=== PATIENT | male | born 1955 | race Caucasian/White ===

== ENCOUNTER 2019-12-04 00:13 | Inpatient (IN) | payer OTHER ==
[2019-12-04] MEDS ORDERED: Morphine 4 MG/ML VIAL ONE (01:12)
[2019-12-04 01:26] LABS: #Monocytes 0.9 thou/uL (0.11-0.59); #Neutrophils 11.1 thou/uL (1.40-6.50); %Basophils 0.1 % (0.0-1.0); %Eosinophils 0.3 % (0.0-10.0); %Lymphocytes 14.4 % (21.0-51.0); %Monocytes 6.4 % (0.0-10.0); %Neutrophils 78.8 % (42.0-75.0); Hemoglobin 12.4 g/dL (14.0-18.0); Mean Corpuscular HGB CONC 34.7 g/dL (32.0-36.0); Mean Corpuscular Hemoglobin 32.7 pg (27.0-31.0); Mean Corpuscular Volume 94.4 fL (78.0-98.0); Mean Platelet Volume 6.7 fL (7.4-10.4); Platelet Count 218 thou/uL (130-400); RBC Distribution Width 12.7 % (11.5-14.5); White Blood Cell (WBC) Count 14.1 thou/uL (4.8-10.8)
[2019-12-04 01:42] LABS: Phosphorus 2.8 mg/dL (2.3-4.7)
[2019-12-04 01:45] LABS: Anion Gap 16 mmol/L (10-20); BUN (Urea Nitrogen) 26 mg/dL (8.4-25.7); Calc. Creatinine Clearance 0 mL/min (70-130); Calcium 8.9 mg/dL (7.8-10.44); Carbon Dioxide 18 mmol/L (23-31); Chloride 102 mmol/L (98-107); Estimated GFR-MDRD 45; Glucose 180 mg/dL (80-115); Magnesium 1.6 mg/dL (1.6-2.6); Potassium 5.4 mmol/L (3.5-5.1); Sodium 131 mmol/L (136-145)
[2019-12-04 04:03] VITALS: BMI 35.6
[2019-12-04] MEDS ORDERED: Ondansetron ODT 4 MG TAB SL PRN (05:15)
[2019-12-04] MEDS ORDERED: Acetaminophen 325 MG TAB PO PRN ×2 (05:15→06:46)
[2019-12-04] MEDS ORDERED: Ondansetron PF 4 MG/2 ML Vial IVP PRN ×2 (05:15→06:46)
[2019-12-04] MEDS ORDERED: HYDROcodone/Acetaminophen 5/325 mg Tablet PO PRN (06:46)
[2019-12-04] MEDS ORDERED: Labetalol HCl 100 MG/20 ML VIAL SLOW IVP PRN (06:46)
[2019-12-04] MEDS ORDERED: cloNIDine 0.1 MG TAB PO PRN (06:46)
[2019-12-04] MEDS ORDERED: Promethazine HCl 12.5 MG in Sodium Chloride 0.9% 50 ML IVPB PRN (06:46)
[2019-12-04] MEDS ORDERED: hydrALAZINE 20 MG/ML VIAL SLOW IVP PRN (06:46)
--- NOTE | 2019-12-04 06:56 | PDOC.HHP ---
Hospitalist HPI - History of Present Illness Stomach pain, hyperkalemia History of Present Illness: Patient is a 64 year old male with PMH CAD/stent, HTN, HLD who presents to ED for sudden onset nausea, vomiting and abdominal pain beginning suddenly today. Patient has been driving from [place] to [place] and was at a gas station and developed sudden onset epigastric pain, nausea, vomiting, reports was eating junk food but no undercooked or left out food. he has two stents placed 2017. patient denies diarrhea, blood or melena in stool or vomit, denies history of DM, took pepto bismol before coming with no relief. He went to [facility] and there was found to have hyperkalemia and ARSENIO, WBC 14, Na 131, K was 5.8, patient recieved insulin/d50, notably he is on arti inhibitor and spironolactone for cardiac history, Cr was 1.75, both K and Cr improved on recheck here. glucose elevated 180s. CT a/p at [facility] revealed cholelithiasis, no evidence of acute cholecystitis. severe SMA stenosis, recieved abx, pain medications, zofran, patient transferred here for further care. Hospitalist ROS - Review of Systems Constitutional: denies: fever, chills, sweats, weakness, malaise, other Eyes: denies: pain, vision change, conjunctivae inflammation, eyelid inflammation, redness, other ENT: denies: ear pain, ear discharge, nose pain, nose discharge, nose congestion, mouth pain, mouth swelling, throat pain, throat swelling, other Respiratory: denies: cough, dry, shortness of breath, hemoptysis, SOB with excertion, pleuritic pain, sputum, wheezing, other Cardiovascular: denies: chest pain, palpitations, orthopnea, paroxysmal noc. dyspnea, edema, light headedness, other Gastrointestinal: reports: nausea, vomiting, abdominal pain. denies: diarrhea, constipation, melena, hematochezia, other Genitourinary: denies: dysuria, frequency, incontinence, hematuria, retention, other Musculoskeletal: denies: neck pain, shoulder pain, arm pain, back pain, hand pain, leg pain, foot pain, other Skin: denies: rash, lesions, theresa, bruising, other Neurological: denies: weakness, numbness, incoordination, change in speech, confusion, seizures, other All other systems reviewed; all pertinent +/- noted in HPI/Subj - Medication Medications: reviewed, see admission documents Hospitalist History - Past Medical History Other Medical History: CAD/stent, HTN, HLD, MO - Past Surgical History Other Surgical History: cardiac stent knee/ankle surgery tonsillectomy - Family History Family History: reports: no pertinent history - Social History Smoking Status: Never smoker Alcohol: reports: Rare Drugs: reports: none - Exam General Appearance: NAD, awake alert Eye: PERRL, anicteric sclera ENT: normocephalic atraumatic, no oropharyngeal lesions, moist mucosa Neck: supple, symmetric, no JVD, no thyromegaly, no lymphadenopathy, no carotid bruit Heart: RRR, no murmur, no gallops, no rubs, normal peripheral pulses Respiratory: CTAB, no wheezes, no rales, no ronchi, normal chest expansion, no tachypnea, normal percussion Gastrointestinal: soft, non-distended, normal bowel sounds, no palpable masses, no hepatomegaly, no splenomegaly, no bruit Gastrointestinal - other findings: mild epigastric tenderness, no guarding or rebound Extremities: no cyanosis, no clubbing, no edema Skin: normal turgor, no lesions, no rashes Neurological: cranial nerve grossly intact, normal sensation to touch, no weakness, no focal deficits, no new deficit Musculoskeletal: normal tone, normal strength, no muscle wasting Psychiatric: normal affect, normal behavior, A&O x 3 Hospitalist Results - Labs Result Diagrams: 12/04/19 01:21 12/04/19 01:21 Lab results: WBC 14.1 thou/uL (4.8-10.8) H 12/04/19 01:21 Hgb 12.4 g/dL (14.0-18.0) L 12/04/19 01:21 Hct 35.8 % (42.0-52.0) L 12/04/19 01:21 MCV 94.4 fL (78.0-98.0) 12/04/19 01:21 Plt Count 218 thou/uL (130-400) 12/04/19 01:21 Neutrophils % 78.8 % (42.0-75.0) H 12/04/19 01:21 Sodium 131 mmol/L (136-145) L 12/04/19 01:21 Potassium 5.4 mmol/L (3.5-5.1) H 12/04/19 01:21 Chloride 102 mmol/L (98-107) 12/04/19 01:21 Carbon Dioxide 18 mmol/L (23-31) L 12/04/19 01:21 BUN 26 mg/dL (8.4-25.7) H 12/04/19 01:21 Creatinine 1.57 mg/dL (0.7-1.3) H 12/04/19 01:21 Glucose 180 mg/dL (80-115) H 12/04/19 01:21 Lactic Acid 1.9 mmol/L (0.5-2.2) 12/04/19 01:21 Calcium 8.9 mg/dL (7.8-10.44) 12/04/19 01:21 VITAL SIGNS Wed Dec 04, 2019 02:45 JUNIE Dias, Zo BP: 167/85 MAP: 112 Pulse: 59 Resp: 16 Temp: 98.6 (Oral) Pain: 2 O2 sat: 98 on (Room Air) Time: 12/04/2019 02:45. labs, imaging reports, ed documents reviewed Hospitalist H&P A/P - Plan Plan: Patient is a 64 year old male with PMH CAD/stent, HTN, HLD who presents to ED for sudden onset nausea, vomiting and abdominal pain beginning suddenly today. # abdominal pain # ARSENIO # hyperkalemia # history of CAD/MO/stent # possible SMA stenosis Patient has been driving from [place] to [place] and was at a gas station and developed sudden onset epigastric pain, nausea, vomiting, reports was eating junk food but no undercooked or left out food. he has two stents placed 2017. patient denies diarrhea, blood or melena in stool or vomit, denies history of DM, took pepto bismol before coming with no relief. He went to [facility] ED and there was found to have hyperkalemia and ARSENIO, WBC 14, Na 131, K was 5.8, patient recieved insulin/d50, notably he is on arti inhibitor and spironolactone for cardiac history, Cr was 1.75, both K and Cr improved on recheck here. glu cose elevated 180s. CT a/p at [facility] revealed cholelithiasis, no evidence of acute cholecystitis. severe SMA stenosis, recieved abx, pain medications, zofran, patient transferred here for further care. - admit to obs - hold arti inhibitor, spironolactone, resume other meds - trend BMP - monitor off of abx - likely gastroenteritis causing pain less likely due to SMA stenosis given timing and symptoms abover, monitor and hopefully symptoms self limit - IVF, monitor for overload will order 1 bag # DVT/GI ppx
[2019-12-04] MEDS ORDERED: Electrolyte Replacement Protoc 1 EACH EACH FS SCH (07:00)
[2019-12-04] MEDS ORDERED: Electrolyte Replacement Protocol FS PRN (07:15)
[2019-12-04] MEDS ORDERED: Sodium Chloride 0.9% 1,000 ML IV SCH (07:15)
[2019-12-04] MEDS: Furosemide 20 MG TAB PO SCH (09:43)
[2019-12-04] MEDS: Heparin 5,000 UNITS/ML VIAL SC SCH ×2 (09:43→20:58)
[2019-12-04] MEDS: Famotidine 20 MG TAB PO SCH (09:43)
[2019-12-04] MEDS ORDERED: Magnesium 2 GM/50 ML 2 GM in Premix Bag 1 BAG IVPB SCH (11:00)
[2019-12-04 11:01] LABS: Anion Gap 15 mmol/L (10-20); BUN (Urea Nitrogen) 22 mg/dL (8.4-25.7); Calc. Creatinine Clearance 94 mL/min (70-130); Calcium 8.5 mg/dL (7.8-10.44); Carbon Dioxide 20 mmol/L (23-31); Chloride 102 mmol/L (98-107); Estimated GFR-MDRD 55; Glucose 178 mg/dL (80-115); Potassium 4.7 mmol/L (3.5-5.1); Sodium 132 mmol/L (136-145)
[2019-12-04 12:03] LABS: SARS-CoV-2 MS2 Positive; SARS-CoV-2 N Gene Negative; SARS-CoV-2 S Gene Negative; SARS-CoV-2 by NAA Not Detected (NotDetected); SARS-CoV-2 orf1ab Negative
[2019-12-04] MEDS: Clopidogrel Bisulfate 75 MG TAB PO SCH (20:58)
[2019-12-04] MEDS ORDERED: Atorvastatin Calcium 40 MG TAB PO SCH (21:00)
[2019-12-04] MEDS ORDERED: Carvedilol 25 MG TAB PO SCH (21:00)
[2019-12-05 05:08] LABS: #Eosinphils 0.2 thou/uL (0.0-0.7); #Lymphocytes 2.1 thou/uL (1.20-3.40); #Monocytes 0.6 thou/uL (0.11-0.59); #Neutrophils 3.9 thou/uL (1.40-6.50); %Basophils 0.2 % (0.0-1.0); %Eosinophils 2.5 % (0.0-10.0); %Lymphocytes 30.6 % (21.0-51.0); %Monocytes 9.1 % (0.0-10.0); %Neutrophils 57.6 % (42.0-75.0); Hemoglobin 11.1 g/dL (14.0-18.0); Mean Corpuscular HGB CONC 33.5 g/dL (32.0-36.0); Mean Corpuscular Hemoglobin 31.7 pg (27.0-31.0); Mean Corpuscular Volume 94.6 fL (78.0-98.0); Mean Platelet Volume 7.2 fL (7.4-10.4); Platelet Count 190 thou/uL (130-400); RBC Distribution Width 12.8 % (11.5-14.5); Red Blood Cell (RBC) Count 3.49 mill/uL (4.70-6.10); White Blood Cell (WBC) Count 6.7 thou/uL (4.8-10.8)
[2019-12-05 05:30] LABS: Anion Gap 15 mmol/L (10-20); BUN (Urea Nitrogen) 14 mg/dL (8.4-25.7); Calc. Creatinine Clearance 102 mL/min (70-130); Calcium 7.9 mg/dL (7.8-10.44); Carbon Dioxide 18 mmol/L (23-31); Chloride 106 mmol/L (98-107); Estimated GFR-MDRD 60; Glucose 132 mg/dL (80-115); Magnesium 1.9 mg/dL (1.6-2.6); Potassium 4.7 mmol/L (3.5-5.1); Sodium 134 mmol/L (136-145)
[2019-12-05 05:33] LABS: Troponin I 0.074 ng/mL (< 0.028)
[2019-12-05] MEDS ORDERED: Magnesium 2 GM/50 ML 2 GM in Premix Bag 1 BAG IVPB SCH (06:45)
[2019-12-05] MEDS: Heparin 5,000 UNITS/ML VIAL SC SCH (08:32)
[2019-12-05] MEDS: Furosemide 20 MG TAB PO SCH (08:33)
[2019-12-05] MEDS: Famotidine 20 MG TAB PO SCH (08:33)
[2019-12-05 12:36] VITALS: BP 142/71; TEMP 97.6
--- NOTE | 2019-12-06 07:57 | DIS ---
DATE OF ADMISSION: 12/04/2019 DATE OF DISCHARGE: 12/05/2019 DISCHARGE DIAGNOSES: 1. Abdominal pain. 2. Acute kidney injury. 3. Hyperkalemia. 4. Dehydration. 5. History of coronary artery disease. 6. Superior mesenteric artery stenosis. DISCHARGE MEDICATIONS: Those are unchanged from the patient's home medicines. HISTORY OF PRESENT ILLNESS AND HOSPITAL COURSE: The patient is a 64-year-old male with past medical history of coronary artery disease, hypertension, and hyperlipidemia, who presented to the ER with acute onset of nausea, vomiting, and abdominal pain that started suddenly on the day prior to presentation. The patient reported eating junk food on the day before. His presentation was concerning for gastroenteritis with dehydration. He was managed conservatively with IV fluids, pain management, and antiemetics. His symptoms were resolved within 24 hours. Of note, the patient's CT scan of the abdomen revealed presence of severe SMA stenosis. The patient was instructed to follow up in a tertiary care center for further evaluation. Job ID: [id number]
== END 2019-12-05 17:33 | disposition home or self-care (01) | DRG 683 ==
LOC: ERS 00:13 → 2SW 02:31 → OBSVTOIN 14:21
PROVIDERS: ADMIT Internal Medicine; ATTEND Internal Medicine
DX: N17.9 Acute kidney failure, unspecified (principal); K55.1 Chronic vascular disorders of intestine; Z20.828 Contact with and (suspected) exposure to other viral communicable diseases; I25.10 Atherosclerotic heart disease of native coronary artery without angina pectoris; I10 Essential (primary) hypertension; E78.5 Hyperlipidemia, unspecified; E86.0 Dehydration; E87.5 Hyperkalemia; K52.9 Noninfective gastroenteritis and colitis, unspecified; Z95.5 Presence of coronary angioplasty implant and graft; I25.2 Old myocardial infarction; Z90.89 Acquired absence of other organs
CPT/HCPCS: 36415; 80048; 83605; 83735; 84100; 84484; 85025; 87635; 93005; J1644; J2270; J3475; U0003